=== PATIENT | female | born 1975 | race Caucasian/White ===

== ENCOUNTER 2018-08-29 09:24 | Emergency (ER) | payer OTHER ==
[~2018-08-29] VITALS: Ht 157.5 cm; Wt 70.3 kg
[~2018-08-29 09:24] MED LIST: ALEVE220 M1 PO; APAP/CODEI12 MG/5 M1 OR; CYTOMEL 25 MCG25 MC1 PO; DOXYCYCLINE 10100 MG PO; HYDROCODONE-AP1 EAC6 PO; IBUPROFEN 800800 M1 PO; NEURONTIN300 MG PO; PHENERGAN 25 MG25 M1 PO; PRILOSEC OTC20 MG PO; SYNTHROID100 MCG PO; TOPAMAX 25 MG T25 M1 PO; ZOFRAN4 MG PO; ZOLOFT25 MG PO
[2018-08-29] MEDS ORDERED: ZYRTEC10 M5 PO (09:37)
[2018-08-29] MEDS ORDERED: LAMICTAL XR100 MG PO (09:37)
[2018-08-29] MEDS ORDERED: CYMBALTA20 MG PO (09:38)
[2018-08-29] MEDS ORDERED: FLEXERIL PO (10:38)
[2018-08-29] MEDS ORDERED: ULTRAM 50MG TAB50 MG PO (10:38)
[2018-08-29 10:55] VITALS: BP 135/92
== END 2018-08-29 10:55 | disposition home or self-care (01) ==
LOC: M.ERS 09:24
DX: S39.012A Strain of muscle, fascia and tendon of lower back, initial encounter (principal); X50.0XXA Overexertion from strenuous movement or load, initial encounter; Y92.89 Other specified places as the place of occurrence of the external cause; Y93.89 Activity, other specified; Y99.8 Other external cause status